=== PATIENT | male | born 1975 | race African-American/Black ===

== ENCOUNTER 2017-05-27 19:39 | Inpatient (IN) | payer OTHER ==
[~2017-05-27] VITALS: Ht 172.7 cm; Wt 177.5 kg
[~2017-05-27 19:39] MED LIST: ADVA250A INH; ALBU8I INH; COMBAER INH; DULE100A PO; IMOD2TAB PO
[2017-05-27 20:58] VITALS: BP 139/73; PULSE 119; RESP 22; TEMP 98.4; O2SAT 97
[2017-05-27] MEDS ORDERED: [UNRECOGNIZED DRUG - OTHER] INH (21:15)
[2017-05-27] MEDS ORDERED: VENTAER INH (21:15)
[2017-05-27] MEDS ORDERED: AZIT250T3 PO (21:15)
[2017-05-27] MEDS ORDERED: methylPREDNISolone SOD SUCC 125 MG/2 ML VIAL IV PUSH ONE (21:15)
[2017-05-27] MEDS ORDERED: PRED20 PO (21:15)
[2017-05-27] MEDS ORDERED: albuterol solution INH (21:15)
[2017-05-27] MEDS ORDERED: TYLE325T PO (21:15)
[2017-05-27 21:17] VITALS: O2SAT 97
[2017-05-27] MEDS: RESP: ALBUTEROL 2.5 MG/IPRATROPIUM 0.5 MG NEB (SCH) INH ×2 (21:26→21:27)
[2017-05-27 22:03] LABS: AUTOMATED NEUTROPHIL # 4.6 TH/MM3 (1.8-7.7); BASOPHIL % 0.2 % (0.0-2.0); EOSINOPHIL % 0.1 % (0.0-4.0); HEMATOCRIT 41.2 % (39.0-51.0); HEMOGLOBIN 13.9 GM/DL (13.0-17.0); LYMPH % 12.1 % (9.0-44.0); LYMPHOCYTE # 0.8 TH/MM3 (1.0-4.8); MEAN CELL VOLUME 80.8 FL (80.0-100.0); MEAN CORPUSCULAR HEMOGLOBIN 27.3 PG (27.0-34.0); MEAN CORPUSCULAR HGB CONC 33.8 % (32.0-36.0); MEAN PLATELET VOLUME 8.2 FL (7.0-11.0); MONO % 18.5 % (0.0-8.0); MONOCYTE # 1.2 TH/MM3 (0-0.9); NEUT % 69.1 % (16.0-70.0); PLATELET COUNT 210 TH/MM3 (150-450); RED CELL DISTRIBUTION WIDTH 14.2 % (11.6-17.2); WHITE BLOOD COUNT 6.7 TH/MM3 (4.0-11.0)
--- NOTE | 2017-05-27 22:05 | RADRPT ---
EXAM DATE/TIME: 05/27/2017 21:21 [facility] COMPARISON: No previous studies available for comparison. INDICATIONS : Shortness of breath. MEDICAL HISTORY : Asthma. SURGICAL HISTORY : None. ENCOUNTER: Initial ACUITY: 1 day PAIN SCORE: 0/10 LOCATION: Bilateral chest FINDINGS: PA and lateral views of the chest demonstrate the lungs to be symmetrically aerated without evidence of mass, infiltrate or effusion. The cardiomediastinal contours are unremarkable. Osseous structure s are intact. CONCLUSION: No acute disease. Maicol Fang MD on May 27, 2017 at 22:03 Board Certified Radiologist. This report was verified electronically.
[2017-05-27 22:09] LABS: INTERNATIONAL NORMALIZED RATIO 1.1 RATIO; PROTHROMBIN TIME - PATIENT 10.7 SEC (9.8-11.6)
[2017-05-27 22:16] LABS: ALBUMIN 3.9 GM/DL (3.4-5.0); AST (GOT) 23 U/L (15-37); BICARBONATE 23.2 MEQ/L (21.0-32.0); BLOOD UREA NITROGEN 13 MG/DL (7-18); CALCIUM 9.2 MG/DL (8.5-10.1); CHLORIDE 109 MEQ/L (98-107); CREATININE 1.21 MG/DL (0.60-1.30); GLOMERULAR FILTRATION RATE 81 ML/MIN (>89); GLUCOSE,RANDOM 103 MG/DL (74-106); SODIUM (NA) 142 MEQ/L (136-145)
[2017-05-27 22:17] LABS: ALT (GPT) 46 U/L (12-78)
[2017-05-27 22:29] LABS: ALKALINE PHOSPHATASE 71 U/L (45-117); TOTAL BILIRUBIN ADULT 0.3 MG/DL (0.2-1.0); TOTAL PROTEIN 8.3 GM/DL (6.4-8.2); TROPONIN I LESS THAN 0.02 NG/ML (0.02-0.05)
[2017-05-27] MEDS ORDERED: RESP: ALBUTEROL 2.5 MG/IPRATROPIUM 0.5 MG NEB (SCH) NEB ONE (23:45)
[2017-05-28] VITALS (7 sets, daily range): BP systolic 110–135; BP diastolic 58–94; PULSE 94–110; RESP 16–22; TEMP 97–98.6; O2SAT 94–98
[2017-05-28] MEDS: MAGNESIUM SULFATE 1 GM PREMIX 100 ML IV SCH ×2 (00:08→01:10)
--- NOTE | 2017-05-28 02:13 | PD ---
HPI Chief Complaint: Respiratory Symptoms Time Seen by Provider: 20:58 Travel History International Travel<30 days: No Contact w/Intl Traveler<30days: No Traveled to known affect area: No History of Present Illness HPI Patient is a 41 year old male, with history of asthma, who comes in complaining of difficulty breathing. He says that he has had cold symptoms for the past week, and has been triggering his asthma. He was seen by a primary doctor and prescribed azithromycin as well as prednisone. He has been taking these without relief of his symptoms. He says it became acutely worse tonight. He has been using albuterol without relief. He says he did have a fever earlier in the week. He denies any chest pain, but reports tightness in his chest. He denies any leg swelling or calf tenderness. Severity is moderate to severe. PFSH Past Medical History Asthma: Yes Autoimmune Disease: No Blood Disorders: No Cancer: No Cardiovascular Problems: No COPD: Yes Diminished Hearing: No Endocrine: No Genitourinary: Yes (KIDNEY STONES) Immune Disorder: No Kidney Stones: Yes Musculoskeletal: No Neurologic: No Psychiatric: No Reproductive: No Respiratory: Yes Sleep Apnea: Yes Tetanus Vaccination: > 5 Years Influenza Vaccination: No PNEUMOCCOCAL Vaccine (Year): 2 Past Surgical History Abdominal Surgery: Yes (HERNIA REPAIRED A CHILD) Genitourinary Surgery: No Other Surgery: Yes (UMBILICAL HERNIA REPAIR.) Social History Alcohol Use: No Tobacco Use: No Substance Use: No Allergies-Medications (Allergen,Severity, Reaction): Coded Allergies: aspirin (Unverified Adverse Reaction, Severe, GI UPSET, 10/04/16) Reported Meds & Prescriptions Reported Meds & Active Scripts Active Reported [albuterol solution] 0.083 % INH Q4-6H Tylenol (Acetaminophen) 325 Mg Tab 500 Mg PO PRN Prednisone 20 Mg Tab 20 Mg PO DAILY Azithromycin 250 Mg Tab 250 Mg PO DAILY Ventolin Hfa 18 GM Inh (Albuterol Sulfate) 90 Mcg/Act Aer 2 Puff INH Q4H PRN [brevo inh] Inh INH DAILY Review of Systems Except as stated in HPI: all other systems reviewed are Neg General / Constitutional: No: Fever, Chills HENT: Positive: Congestion, No: Headaches, Lightheadedness Cardiovascular: No: Chest Pain or Discomfort Respiratory: Positive: Cough, Shortness of Breath Gastrointestinal: No: Nausea, Vomiting Musculoskeletal: No: Myalgias, Edema Skin: No Rash, No Change in Pigmentation Neurologic: No: Weakness, Dizziness Physical Exam Narrative GENERAL: Awake and alert, in no acute distress. SKIN: Focused skin assessment warm/dry. HEAD: Atraumatic. Normocephalic. EYES: Pupils equal and round. No scleral icterus. ENT: Mucous membranes pink and moist. NECK: Trachea midline. No JVD. CARDIOVASCULAR: Regular rate and rhythm. No murmur appreciated. RESPIRATORY: No accessory muscle use. Decreased breath sounds, wheezing throughout. Breath sounds equal bilaterally. GASTROINTESTINAL: Abdomen soft, non-tender, nondistended. MUSCULOSKELETAL: No obvious deformities. No clubbing. No cyanosis. No edema. NEUROLOGICAL: Awake and alert. No obvious cranial nerve deficits. Motor grossly within normal limits. Normal speech. PSYCHIATRIC: Appropriate mood and affect; insight and judgment normal. Data Data Last Documented VS Vital Signs Date Time Temp Pulse Resp B/P (MAP) Pulse Ox O2 Delivery O2 Flow Rate FiO2 05/27/17 21:17 97 Nasal Cannula 4.00 05/27/17 20:58 98.4 119 22 139/73 (95) Orders Orders Complete Blood Count With Diff (05/27/17 21:03) Comprehensive Metabolic Panel (05/27/17 21:03) B-Type Natriuretic Peptide (05/27/17 21:03) Act Partial Throm Time (Ptt) (05/27/17 21:03) Prothrombin Time / Inr (Pt) (05/27/17 21:03) Troponin I (05/27/17 21:03) Iv Access Insert/Monitor (05/27/17 21:03) Electrocardiogram (05/27/17 21:03) Ecg Monitoring (05/27/17 21:03) Oximetry (05/27/17 21:03) Oxygen Administration (05/27/17 21:03) Chest, Pa & Lat (05/27/17 21:03) Sodium Chloride 0.9% Flush (Ns Flush) (05/27/17 21:15) Methylprednisolone So Succ Inj (Solumedr (05/27/17 21:15) Albuterol-Ipratropium Neb (Duoneb Neb) (05/27/17 21:15) Magnesium Sulfate 1 Gm Premix (Magnesium (05/27/17 23:45) Albuterol-Ipratropium Neb (Duoneb Neb) (05/27/17 23:45) Labs Laboratory Tests Test 05/27/17 21:21 05/27/17 21:34 White Blood Count 6.7 TH/MM3 Red Blood Count 5.10 MIL/MM3 Hemoglobin 13.9 GM/DL Hematocrit 41.2 % Mean Corpuscular Volume 80.8 FL Mean Corpuscular Hemoglobin 27.3 PG Mean Corpuscular Hemoglobin Concent 33.8 % Red Cell Distribution Width 14.2 % Platelet Count 210 TH/MM3 Mean Platelet Volume 8.2 FL Neutrophils (%) (Auto) 69.1 % Lymphocytes (%) (Auto) 12.1 % Monocytes (%) (Auto) 18.5 % Eosinophils (%) (Auto) 0.1 % Basophils (%) (Auto) 0.2 % Neutrophils # (Auto) 4.6 TH/MM3 Lymphocytes # (Auto) 0.8 TH/MM3 Monocytes # (Auto) 1.2 TH/MM3 Eosinophils # (Auto) 0.0 TH/MM3 Basophils # (Auto) 0.0 TH/MM3 CBC Comment DIFF FINAL Differential Comment Blood Urea Nitrogen 13 MG/DL Creatinine 1.21 MG/DL Random Glucose 103 MG/DL Total Protein 8.3 GM/DL Albumin 3.9 GM/DL Calcium Level 9.2 MG/DL Alkaline Phosphatase 71 U/L Aspartate Amino Transf (AST/SGOT) 23 U/L Alanine Aminotransferase (ALT/SGPT) 46 U/L Total Bilirubin 0.3 MG/DL Sodium Level 142 MEQ/L Potassium Level 4.0 MEQ/L Chloride Level 109 MEQ/L Carbon Dioxide Level 23.2 MEQ/L Anion Gap 10 MEQ/L Estimat Glomerular Filtration Rate 81 ML/MIN Troponin I LESS THAN 0.02 NG/ML Prothrombin Time 10.7 SEC Prothromb Time International Ratio 1.1 RATIO Activated Partial Thromboplast Time 21.7 SEC B-Type Natriuretic Peptide 20 PG/ML MDM Medical Decision Making Medical Screen Exam Complete: Yes Emergency Medical Condition: Yes Medical Record Reviewed: Yes Interpretation(s) ECG shows sinus tachycardia at 100. Differential Diagnosis asthma exacerbation vs pneumonia vs URI Narrative Course Patient is a 41 year old male who comes in complaining of SOB. Exam shows decreased breath sounds and wheezing throughout the lungs. Patient has saturation is 90% on room air. Given 4 duonebs and solumedrol. Given Magnesium. Patient continues to wheeze and have low oxygen saturation. Placed on 2L NC and admitted. Diagnosis Primary Impression: Asthma exacerbation Qualified Codes: J45.901 - Unspecified asthma with (acute) exacerbation Admitting Information Admitting Physician Requests: Berkley Grace MD May 28, 2017 02:13
[2017-05-28] MEDS: RESP: ALBUTEROL 2.5 MG/IPRATROPIUM 0.5 MG NEB (SCH) NEB ×6 (04:00→23:51)
[2017-05-28] MEDS ORDERED: IPRA0.02 NEB (08:06)
[2017-05-28] MEDS ORDERED: ALBU0.08 NEB (08:06)
[2017-05-28] MEDS ORDERED: IPRA0.06 EACH NARE (08:06)
--- NOTE | 2017-05-28 08:09 | HHI.HP ---
HPI Service [facility] Hospitalists Primary Care Physician Macrina Galindo MD Admission Diagnosis Asthma exacerbation Chief Complaint: SOB, wheezing, cough Travel History International Travel<30 Days: No Contact w/Intl Traveler <30 Da: No Traveled to Known Affected Are: No History of Present Illness Mr. Plasencia is a pleasant 41 y/o AAM with asthma, allergies, JUDAH and morbid obesity. He presented to the ED at [facility] on 05/27/17 with complaints of worsening cough and SOB. He states that about 1 week ago he began having "cold symptoms" with runny nose, post-nasal drip and cough. He was seen by a primary doctor on and was recommended use of sterile saline solution with his ipratropium nasal spray. He has been using Duonebs every 4 hours over the last week. Pts symptoms worsened and he went back to [facility] on 05/26/17 and was prescribed azithromycin as well as prednisone taper. He has been taking these without relief of his symptoms. Yesterday he had fevers of 101.2. Last night he felt that his symptoms acutely worsened with increased SOB and cough and this prompted him to come to the ED for further evaluation. Pt was given Solu-Medrol and Duonebs in the ED. He was initially requiring 4L of supplemental O2. He denies any chest pain, but reports tightness in his chest. He denies any leg swelling or calf tenderness. CXR in the ED indicated NAD. His WBC count was 6.7 at admission. Pt typically uses Breo ellipta, Ventolin inhaler 3-4 times daily and his Singulair for maintenance of his asthma. He also states that he has been getting allergy injections regularly. Pt has JUDAH but does not use CPAP. He reportedly has used CPAP in the past but it has been quite some time and is supposed to be following up with Dr. Aguilar for sleep study evaluation. Review of Systems Constitutional: COMPLAINS OF: Fever, DENIES: Dizziness, Change in appetite Eyes: DENIES: Vision loss Ears, nose, mouth, throat: COMPLAINS OF: Running Nose, DENIES: Tinnitus, Vertigo, Nasal discharge, Throat pain Respiratory: COMPLAINS OF: Cough, Wheezing, Shortness of breath Cardiovascular: DENIES: Chest pain, Palpitations, Lower Extremity Edema Gastrointestinal: DENIES: Nausea, Vomiting Genitourinary: DENIES: Hematuria, Dysuria Musculoskeletal: DENIES: Neck pain Integumentary: DENIES: Rash Neurologic: DENIES: Headache Psychiatric: DENIES: Confusion Past Family Social History Past Medical History Asthma JUDAH not on CPAP yet Allergies Morbid obesity Vitamin D and folate deficiency Past Surgical History Umbilical hernia repair Reported Medications Ipratropium Nasal 0.06% [place] 1 [place] EACH NARE BID Ipratropium Neb (Ipratropium [place]) 0.5 Mg/2.5 Ml Amp 0.5 Mg NEB Q4HR NEB PRN Albuterol Neb (Albuterol Sulfate) 2.5 Mg/3 Ml Neb 2.5 Mg NEB Q4HR NEB PRN Tylenol (Acetaminophen) 325 Mg Tab 500 Mg PO PRN Prednisone 20 Mg Tab 20 Mg PO DAILY Azithromycin 250 Mg Tab 250 Mg PO DAILY Ventolin Hfa 18 GM Inh (Albuterol Sulfate) 90 Mcg/Act Aer 2 Puff INH Q4H PRN Allergies: Coded Allergies: aspirin (Unverified Adverse Reaction, Severe, GI UPSET, 10/04/16) Family History Noncontributory Social History Denies any tobacco use Rare social alcohol use Works in [employer] for [employer] Pt is with 6 children, oldest is 23, youngest is 3 y/o Physical Exam Vital Signs Vital Signs Date Time Temp Pulse Resp B/P (MAP) Pulse Ox O2 Delivery O2 Flow Rate FiO2 05/28/17 07:47 97 Nasal Cannula 3.00 05/28/17 03:31 97.3 96 16 135/77 (96) 94 05/27/17 21:17 97 Nasal Cannula 4.00 05/27/17 21:17 97 Nasal Cannula 4.00 05/27/17 20:58 98.4 119 22 139/73 (95) 97 Physical Exam GENERAL: This is a well-nourished, well-developed patient, in no apparent distress. SKIN: No rashes, ecchymoses or lesions. Cool and dry. HEENT: Atraumatic. Normocephalic. No temporal or scalp tenderness. No scleral icterus. Airway patent. NECK: Trachea midline, supple, nontender. CARD: Regular. RESP: Diffuse expiratory wheeze bilaterally. ABD: +BS, soft, obese, non-tender, nondistended. EXT: Extremities without clubbing, cyanosis, or edema. NEURO: Awake and alert. Motor and sensory grossly within normal limits. Normal speech. Laboratory Laboratory Tests Test 05/27/17 21:21 05/27/17 21:34 White Blood Count 6.7 Red Blood Count 5.10 Hemoglobin 13.9 Hematocrit 41.2 Mean Corpuscular Volume 80.8 Mean Corpuscular Hemoglobin 27.3 Mean Corpuscular Hemoglobin Concent 33.8 Red Cell Distribution Width 14.2 Platelet Count 210 Mean Platelet Volume 8.2 Neutrophils (%) (Auto) 69.1 Lymphocytes (%) (Auto) 12.1 Monocytes (%) (Auto) 18.5 Eosinophils (%) (Auto) 0.1 Basophils (%) (Auto) 0.2 Neutrophils # (Auto) 4.6 Lymphocytes # (Auto) 0.8 Monocytes # (Auto) 1.2 Eosinophils # (Auto) 0.0 Basophils # (Auto) 0.0 CBC Comment DIFF FINAL Differential Comment Blood Urea Nitrogen 13 Creatinine 1.21 Random Glucose 103 Total Protein 8.3 Albumin 3.9 Calcium Level 9.2 Alkaline Phosphatase 71 Aspartate Amino Transf (AST/SGOT) 23 Alanine Aminotransferase (ALT/SGPT) 46 Total Bilirubin 0.3 Sodium Level 142 Potassium Level 4.0 Chloride Level 109 Carbon Dioxide Level 23.2 Anion Gap 10 Estimat Glomerular Filtration Rate 81 Troponin I LESS THAN 0.02 Prothrombin Time 10.7 Prothromb Time International Ratio 1.1 Activated Partial Thromboplast Time 21.7 B-Type Natriuretic Peptide 20 Result Diagram: 05/27/17212005/27/172120 Imaging Last Impressions Chest X-Ray 05/27/172102 Signed Impressions: Service Date/Time: Saturday, May 27, 2017 21:21 - CONCLUSION: No acute disease. MD Joaquina Jiménezi VTE Risk Assessment Caprini VTE Risk Assessment: No/Low Risk (score <= 1) Caprini Risk Assessment Model Point Value = 1 Point Value = 2 Point Value = 3 Point Value = 5 Age 41-60 Minor surgery BMI > 25 kg/m2 Swollen legs Varicose veins or History of unexplained or recurrent spontaneous Oral contraceptives or hormone replacement Sepsis (< 1 month) Serious lung disease, including pneumonia (< 1 month) Abnormal pulmonary function Acute myocardial infarction Congestive heart failure (< 1 month) History of inflammatory bowel disease Medical patient at bed rest Age 61-74 Arthroscopic surgery Major open surgery (> 45 min) Laparoscopic surgery (> 45 min) Malignancy Confined to bed (> 72 hours) Immobilizing plaster cast Central venous access Age >= 75 History of VTE Family history of VTE Factor V Leiden Prothrombin [id number] Lupus anticoagulant Anticardiolipin antibodies Elevated serum homocysteine Heparin-induced thrombocytopenia Other congenital or acquired thrombophilia Stroke (< 1 month) Elective arthroplasty Hip, pelvis, or leg fracture Acute spinal cord injury (< 1 month) Prophylaxis Regimen Total Risk Factor Score Risk Level Prophylaxis Regimen 0-1 Low Early ambulation 2 Moderate Order ONE of the following: *Sequential Compression Device (SCD) *Heparin 5000 units SQ BID 3-4 Higher Order ONE of the following medications: *Heparin 5000 units SQ TID *Enoxaparin/Lovenox 40 mg SQ daily (WT < 150 kg, CrCl > 30 mL/min) *Enoxaparin/Lovenox 30 mg SQ daily (WT < 150 kg, CrCl > 10-29 mL/min) *Enoxaparin/Lovenox 30 mg SQ BID (WT < 150 kg, CrCl > 30 mL/min) AND/OR *Sequential Compression Device (SCD) 5 or more Highest Order ONE of the following medications: *Heparin 5000 units SQ TID (Preferred with Epidurals) *Enoxaparin/Lovenox 40 mg SQ daily (WT < 150 kg, CrCl > 30 mL/min) *Enoxaparin/Lovenox 30 mg SQ daily (WT < 150 kg, CrCl > 10-29 mL/min) *Enoxaparin/Lovenox 30 mg SQ BID (WT < 150 kg, CrCl > 30 mL/min) AND *Sequential Compression Device (SCD) Assessment and Plan Problem List: (1) Asthma exacerbation ICD Codes: J45.901 - Unspecified asthma with (acute) exacerbation Status: Acute Plan: Asthma exacerbation with acute bronchitis - Pt is a 41 y/o AAM with asthma, allergies, JUDAH and morbid obesity. - He presented to the ED at [facility] on 05/27/17 with complaints of worsening cough and SOB that began about 1 week ago with "cold symptoms" with runny nose, post- nasal drip and cough. He has been using Duonebs every 4 hours over the last week. Pts symptoms worsened and he to [facility] on 05/26/17 and was prescribed azithromycin as well as prednisone taper. He has been taking these without relief of his symptoms. Yesterday he had fevers of 101.2. Last night he felt that his symptoms acutely worsened with increased SOB and cough and this prompted him to come to the ED for further evaluation. - Pt was given Solu-Medrol and Duonebs in the ED. He was initially requiring 4L of supplemental O2. - CXR in the ED indicated NAD. His WBC count was 6.7 at admission. - Pt typically uses Breo ellipta, Ventolin inhaler 3-4 times daily and his Singulair for maintenance of his asthma. He also states that he has been getting allergy injections regularly. - Cont. Solu-medrol 60mg Q6H - Cont. Duonebs Q4H scheduled and Q2H PRN - Given Budesonide nebs BID - Azithromycin IV - Claritin - Wean down on supplemental O2 - Supportive care - DVT prophylaxis with SCDs JUDAH - Pt has JUADH but does not use CPAP. He reportedly has used CPAP in the past but it has been quite some time and is supposed to be following up with Dr. Aguilar for sleep study evaluation. (2) Bronchitis ICD Codes: J40 - Bronchitis, not specified as acute or chronic Status: Acute (3) JUDAH (obstructive sleep apnea) ICD Codes: G47.33 - Obstructive sleep apnea (adult) (pediatric) Status: Chronic Assessment and Plan Patient examined. Assessment and plan formulated with Ariella Chester PA-C. I agree with the above. Pt's lung much improved on physical exam. There is good air movement without wheezing. Discharge medications reviewed with pt. Pt to f/u with PCP, Dr. Galindo in 1 week. Problem Qualifiers (1) Asthma exacerbation: Qualified Codes: J45.901 - Unspecified asthma with (acute) exacerbation Kezia Diaz May 28, 2017 08:09 Hernan Caruso MD May 28, 2017 12:52 Leon Colon DO Jun 03, 2017 12:42
[2017-05-28] MEDS ORDERED: FLUT1INH7 INH (08:24)
[2017-05-28] MEDS ORDERED: AZEL1SPR2 EACH NARE (08:24)
[2017-05-28] MEDS ORDERED: RESP: BUDESONIDE 0.5 MG/2 ML NEB NEB ONE (08:30)
[2017-05-28] MEDS ORDERED: ALBUTEROL SULFATE 90 MCG/ACT HFA 8 GM INHALER INH PRN (08:30)
[2017-05-28] MEDS ORDERED: ONDANSETRON HCL 4 MG/2 ML VIAL IV PRN (08:30)
[2017-05-28] MEDS ORDERED: AZELASTINE 0.1% NASAL SCH (09:00)
[2017-05-28] MEDS ORDERED: methylPREDNISolone SOD SUCC 125 MG/2 ML VIAL IV PUSH SCH (09:00)
[2017-05-28] MEDS: FLUTICASONE 200 MCG/VILANTEROL 25 MCG INHALER INH SCH (09:14)
[2017-05-28] MEDS: guaiFENesin E.R. 600 MG TAB PO SCH ×2 (09:16→20:32)
[2017-05-28] MEDS: SODIUM CHLORIDE 0.9% FLUSH 10 ML FLUSH IVF PRN (09:16)
[2017-05-28] MEDS: methylPREDNISolone SOD SUCC 125 MG/2 ML VIAL IV PUSH SCH ×3 (09:16→20:31)
[2017-05-28] MEDS: LORATADINE 10 MG TAB PO SCH (09:16)
[2017-05-28] MEDS: AZITHROMYCIN INJ 500 MG in SODIUM CHLOR 0.9% 250 ML INJ 250 ML IV SCH (09:16)
[2017-05-28] MEDS: ACETAMINOPHEN 325 MG TAB PO PRN ×2 (14:52→20:18)
--- NOTE | 2017-05-28 19:07 | EKG ---
Date Performed: 05/27/2017 Time Performed: 21:05:01 PTAGE: 41 years EKG: SINUS TACHYCARDIA Since the previous tracing, no significant change noted ABNORMAL RHYTHM E CG PREVIOUS TRACING : 01/11/13 @ 1050 DOCTOR: Hernan Saini Interpretating Date/Time 05/28/2017 19:07:10
[2017-05-28] MEDS: RESP: BUDESONIDE 0.5 MG/2 ML NEB NEB SCH (21:01)
[2017-05-29] VITALS (7 sets, daily range): BP systolic 111–132; BP diastolic 57–74; PULSE 89–118; RESP 16–20; TEMP 96.8–98.8; O2SAT 92–97
[2017-05-29] MEDS: methylPREDNISolone SOD SUCC 125 MG/2 ML VIAL IV PUSH SCH ×4 (03:43→21:59)
[2017-05-29] MEDS: ACETAMINOPHEN 325 MG TAB PO PRN ×3 (03:48→22:04)
[2017-05-29] MEDS: RESP: ALBUTEROL 2.5 MG/IPRATROPIUM 0.5 MG NEB (SCH) NEB ×6 (04:00→23:03)
[2017-05-29] MEDS: RESP: BUDESONIDE 0.5 MG/2 ML NEB NEB SCH ×2 (08:28→19:54)
--- NOTE | 2017-05-29 09:16 | HHI.PR ---
Subjective Remarks Pt reports that he does not feel significantly better than yesterday Cough is more productive today and reportedly bringing up yellow phlegm Afebrile Still requiring 2-3L of supplemental O2 Objective Vitals Vital Signs Date Time Temp Pulse Resp B/P (MAP) Pulse Ox O2 Delivery O2 Flow Rate FiO2 05/29/17 08:33 97.2 89 19 125/69 (87) 93 05/29/17 03:17 97.6 90 18 124/70 (88) 94 05/29/17 00:56 98.0 93 18 127/67 (87) 92 05/28/17 21:00 98 Nasal Cannula 3.00 05/28/17 19:59 98.0 110 18 129/94 (106) 95 05/28/17 16:00 97.0 94 20 125/69 (87) 96 05/28/17 12:00 98.6 110 20 110/58 (75) 96 Result Diagram: 05/27/17212005/27/172120 Other Results Laboratory Tests Test 05/27/17 21:21 05/27/17 21:34 White Blood Count 6.7 TH/MM3 Red Blood Count 5.10 MIL/MM3 Hemoglobin 13.9 GM/DL Hematocrit 41.2 % Mean Corpuscular Volume 80.8 FL Mean Corpuscular Hemoglobin 27.3 PG Mean Corpuscular Hemoglobin Concent 33.8 % Red Cell Distribution Width 14.2 % Platelet Count 210 TH/MM3 Mean Platelet Volume 8.2 FL Neutrophils (%) (Auto) 69.1 % Lymphocytes (%) (Auto) 12.1 % Monocytes (%) (Auto) 18.5 % Eosinophils (%) (Auto) 0.1 % Basophils (%) (Auto) 0.2 % Neutrophils # (Auto) 4.6 TH/MM3 Lymphocytes # (Auto) 0.8 TH/MM3 Monocytes # (Auto) 1.2 TH/MM3 Eosinophils # (Auto) 0.0 TH/MM3 Basophils # (Auto) 0.0 TH/MM3 CBC Comment DIFF FINAL Differential Comment Blood Urea Nitrogen 13 MG/DL Creatinine 1.21 MG/DL Random Glucose 103 MG/DL Total Protein 8.3 GM/DL Albumin 3.9 GM/DL Calcium Level 9.2 MG/DL Alkaline Phosphatase 71 U/L Aspartate Amino Transf (AST/SGOT) 23 U/L Alanine Aminotransferase (ALT/SGPT) 46 U/L Total Bilirubin 0.3 MG/DL Sodium Level 142 MEQ/L Potassium Level 4.0 MEQ/L Chloride Level 109 MEQ/L Carbon Dioxide Level 23.2 MEQ/L Anion Gap 10 MEQ/L Estimat Glomerular Filtration Rate 81 ML/MIN Troponin I LESS THAN 0.02 NG/ML Prothrombin Time 10.7 SEC Prothromb Time International Ratio 1.1 RATIO Activated Partial Thromboplast Time 21.7 SEC B-Type Natriuretic Peptide 20 PG/ML Imaging Last Impressions Chest X-Ray 05/27/172102 Signed Impressions: Service Date/Time: Saturday, May 27, 2017 21:21 - CONCLUSION: No acute disease. Maicol Fang MD Objective Remarks General: NAD, AAOx3 Chest: Diffuse wheezing bilaterally Cardiac: Regular Abd: +BS, soft, obese, ND/NT Ext: No edema A/P Problem List: (1) Asthma exacerbation ICD Codes: J45.901 - Unspecified asthma with (acute) exacerbation Status: Acute Plan: Asthma exacerbation with acute bronchitis - Pt is a 41 y/o AAM with asthma, allergies, JUDAH and morbid obesity. - He presented to the ED at [facility] on 05/27/17 with complaints of worsening cough and SOB that began about 1 week ago with "cold symptoms" with runny nose, post- nasal drip and cough. He has been using Duonebs every 4 hours over the last week. Pts symptoms worsened and he to [facility] on 05/26/17 and was prescribed azithromycin as well as prednisone taper. He has been taking these without relief of his symptoms. Yesterday he had fevers of 101.2. Last night he felt that his symptoms acutely worsened with increased SOB and cough and this prompted him to come to the ED for further evaluation. - Pt was given Solu-Medrol and Duonebs in the ED. He was initially requiring 4L of supplemental O2. - CXR in the ED indicated NAD. His WBC count was 6.7 at admission. - Pt typically uses Breo ellipta, Ventolin inhaler 3-4 times daily and his Singulair for maintenance of his asthma. He also states that he has been getting allergy injections regularly. - Cont. Solu-medrol 60mg Q6H - Cont. Duonebs Q4H scheduled and Q2H PRN - Budesonide nebs BID - Azithromycin IV - Claritin - Sputum culture ordered but not sent yet - Wean down on supplemental O2 - Supportive care - DVT prophylaxis with SCDs JUDAH - Pt has JUDAH but does not use CPAP. He reportedly has used CPAP in the past but it has been quite some time and is supposed to be following up with Dr. Aguilar for sleep study evaluation. (2) Bronchitis ICD Codes: J40 - Bronchitis, not specified as acute or chronic Status: Acute (3) JUDAH (obstructive sleep apnea) ICD Codes: G47.33 - Obstructive sleep apnea (adult) (pediatric) Status: Chronic Assessment and Plan Patient examined. Assessment and plan formulated with Ariella Chester PA-C. I agree with the above. Problem Qualifiers (1) Asthma exacerbation: Qualified Codes: J45.901 - Unspecified asthma with (acute) exacerbation Kezia Diaz May 29, 2017 09:16 Leon Colon DO May 31, 2017 16:17
[2017-05-29] MEDS: LORATADINE 10 MG TAB PO SCH (09:29)
[2017-05-29] MEDS: guaiFENesin E.R. 600 MG TAB PO SCH ×2 (09:29→21:58)
[2017-05-29] MEDS: FLUTICASONE 200 MCG/VILANTEROL 25 MCG INHALER INH SCH (09:30)
[2017-05-29] MEDS: AZITHROMYCIN INJ 500 MG in SODIUM CHLOR 0.9% 250 ML INJ 250 ML IV SCH (09:30)
[2017-05-29] MEDS: SODIUM CHLORIDE 0.9% FLUSH 10 ML FLUSH IVF PRN (09:31)
--- NOTE | 2017-05-29 12:17 | RADRPT ---
EXAM DATE/TIME: 05/29/2017 12:09 [facility] COMPARISON: CHEST PA & LAT, May 27, 2017, 21:21. INDICATIONS : Short of breath, chest pain. MEDICAL HISTORY : Asthma SURGICAL HISTORY : None. ENCOUNTER: Subsequent ACUITY: 1 week PAIN SCORE: 5/10 LOCATION: Bilateral chest FINDINGS: PA and lateral views of the chest demonstrate the lungs to be symmetrically aerated without evidence of mass, infiltrate or effusion. The cardiomediastinal contours are unremarkable. Osseous structure s are intact. CONCLUSION: No acute disease. Frankie Enamorado MD FACR on May 29, 2017 at 12:15 Board Certified Radiologist. This report was verified electronically.
[2017-05-30] VITALS (8 sets, daily range): BP systolic 105–142; BP diastolic 53–84; PULSE 87–99; RESP 18–20; TEMP 97.6–98.8; O2SAT 93–97
[2017-05-30] MEDS: methylPREDNISolone SOD SUCC 125 MG/2 ML VIAL IV PUSH SCH ×4 (03:12→21:33)
[2017-05-30] MEDS: RESP: ALBUTEROL 2.5 MG/IPRATROPIUM 0.5 MG NEB (SCH) NEB ×5 (03:28→20:43)
[2017-05-30] MEDS: RESP: BUDESONIDE 0.5 MG/2 ML NEB NEB SCH ×2 (07:59→20:43)
[2017-05-30] MEDS: SODIUM CHLORIDE 0.9% FLUSH 10 ML FLUSH IVF PRN (09:12)
[2017-05-30] MEDS: LORATADINE 10 MG TAB PO SCH (09:13)
[2017-05-30] MEDS: guaiFENesin E.R. 600 MG TAB PO SCH ×2 (09:13→21:33)
[2017-05-30] MEDS: AZITHROMYCIN INJ 500 MG in SODIUM CHLOR 0.9% 250 ML INJ 250 ML IV SCH (09:13)
[2017-05-30] MEDS: FLUTICASONE 200 MCG/VILANTEROL 25 MCG INHALER INH SCH (09:13)
--- NOTE | 2017-05-30 09:14 | HHI.PR ---
Subjective Remarks Pt is off supplemental O2 with O2 sats in the mid 90's at rest He still feels fairly SOB with ambulation Objective Vitals Vital Signs Date Time Temp Pulse Resp B/P (MAP) Pulse Ox O2 Delivery O2 Flow Rate FiO2 05/30/17 08:02 97 21 05/30/17 08:00 97.6 87 20 127/73 (91) 96 05/30/17 03:38 97.8 98 18 131/71 (91) 93 05/30/17 00:00 98.3 99 18 105/53 (70) 94 05/29/17 20:10 98.8 118 20 111/57 (75) 94 05/29/17 19:35 97 05/29/17 15:22 97.8 94 20 127/74 (91) 94 05/29/17 11:10 96.8 104 16 132/74 (93) 95 Result Diagram: 05/27/17212005/27/172120 Imaging Last Impressions Chest X-Ray 05/27/172102 Signed Impressions: Service Date/Time: Saturday, May 27, 2017 21:21 - CONCLUSION: No acute disease. Maicol Fang MD Objective Remarks General: NAD, AAOx3 Chest: Diffuse wheezing bilaterally Cardiac: Regular Abd: +BS, soft, obese, ND/NT Ext: No edema A/P Problem List: (1) Asthma exacerbation ICD Codes: J45.901 - Unspecified asthma with (acute) exacerbation Status: Acute Plan: Asthma exacerbation with acute bronchitis - Pt is a 41 y/o AAM with asthma, allergies, JUDAH and morbid obesity. - He presented to the ED at [facility] on 05/27/17 with complaints of worsening cough and SOB that began about 1 week ago with "cold symptoms" with runny nose, post- nasal drip and cough. He has been using Duonebs every 4 hours over the last week. Pts symptoms worsened and he to [facility] on 05/26/17 and was prescribed azithromycin as well as prednisone taper. He has been taking these without relief of his symptoms. Yesterday he had fevers of 101.2. Last night he felt that his symptoms acutely worsened with increased SOB and cough and this prompted him to come to the ED for further evaluation. - Pt was given Solu-Medrol and Duonebs in the ED. He was initially requiring 4L of supplemental O2. - CXR in the ED indicated NAD. His WBC count was 6.7 at admission. - Pt typically uses Breo ellipta, Ventolin inhaler 3-4 times daily and his Singulair for maintenance of his asthma. He also states that he has been getting allergy injections regularly. - Cont. Solu-medrol 60mg Q6H - Cont. Duonebs Q4H scheduled and Q2H PRN - Budesonide nebs BID - Azithromycin IV - Claritin - Sputum culture pending - Pt was weaned off supplemental O2 on 05/29 - Supportive care - DVT prophylaxis with SCDs JUDAH - Pt has JUDAH but does not use CPAP. He reportedly has used CPAP in the past but it has been quite some time and is supposed to be following up with Dr. Aguilar for sleep study evaluation. (2) Bronchitis ICD Codes: J40 - Bronchitis, not specified as acute or chronic Status: Acute (3) JUDAH (obstructive sleep apnea) ICD Codes: G47.33 - Obstructive sleep apnea (adult) (pediatric) Status: Chronic Assessment and Plan Patient examined. Assessment and plan formulated with Ariella Chester PA-C. I agree with the above. Problem Qualifiers (1) Asthma exacerbation: Qualified Codes: J45.901 - Unspecified asthma with (acute) exacerbation Kezia Diaz May 30, 2017 09:14 Leon Colon DO May 31, 2017 16:18
[2017-05-30] MEDS: INSULIN ASPART SUPPLEMENTAL SCALE SQ SCH ×2 (17:04→21:50)
[2017-05-30] MEDS: ACETAMINOPHEN 325 MG TAB PO PRN (19:24)
[2017-05-31] VITALS (8 sets, daily range): BP systolic 127–152; BP diastolic 72–87; PULSE 84–106; RESP 18–20; TEMP 97.4–98; O2SAT 93–96
[2017-05-31] MEDS: methylPREDNISolone SOD SUCC 125 MG/2 ML VIAL IV PUSH SCH ×4 (03:57→22:04)
[2017-05-31] MEDS: RESP: ALBUTEROL 2.5 MG/IPRATROPIUM 0.5 MG NEB (SCH) NEB ×7 (04:06→23:59)
[2017-05-31] MEDS: guaiFENesin E.R. 600 MG TAB PO SCH ×2 (07:45→22:04)
[2017-05-31] MEDS: LORATADINE 10 MG TAB PO SCH (07:45)
[2017-05-31] MEDS: AZITHROMYCIN INJ 500 MG in SODIUM CHLOR 0.9% 250 ML INJ 250 ML IV SCH (07:46)
[2017-05-31] MEDS: INSULIN ASPART SUPPLEMENTAL SCALE SQ SCH ×4 (07:46→23:27)
[2017-05-31] MEDS: FLUTICASONE 200 MCG/VILANTEROL 25 MCG INHALER INH SCH (07:47)
[2017-05-31] MEDS: RESP: BUDESONIDE 0.5 MG/2 ML NEB NEB SCH ×2 (08:36→19:54)
--- NOTE | 2017-05-31 16:14 | HHI.PR ---
Subjective Remarks Less SOB today. Wheezing is improving. Objective Vitals Vital Signs Date Time Temp Pulse Resp B/P (MAP) Pulse Ox O2 Delivery O2 Flow Rate FiO2 05/31/17 16:10 97.5 85 20 139/80 (99) 95 05/31/17 11:43 97.6 106 20 127/72 (90) 95 05/31/17 08:20 96 21 05/31/17 07:42 98.0 84 20 139/87 (104) 93 05/31/17 04:08 94 05/31/17 01:16 94 05/31/17 00:33 97.4 86 18 152/83 (106) 96 05/30/17 20:47 95 05/30/17 20:34 98.5 91 18 140/84 (102) 95 05/30/17 16:41 98.8 87 18 142/79 (100) 94 05/31/17 05/31/17 06/01/17 15:00 23:00 07:00 Intake Total 250 ml Balance 250 ml Intake IV Total 250 ml Result Diagram: 05/27/17212005/27/172120 Imaging Last Impressions Chest X-Ray 05/27/172102 Signed Impressions: Service Date/Time: Saturday, May 27, 2017 21:21 - CONCLUSION: No acute disease. Maicol Fang MD Objective Remarks General: NAD, AAOx3 Chest: Diffuse wheezing bilaterally Cardiac: Regular Abd: +BS, soft, obese, ND/NT Ext: No edema A/P Problem List: (1) Asthma exacerbation ICD Codes: J45.901 - Unspecified asthma with (acute) exacerbation Status: Acute Plan: Asthma exacerbation with acute bronchitis - Pt is a 41 y/o AAM with asthma, allergies, JUDAH and morbid obesity. - He presented to the ED at [facility] on 05/27/17 with complaints of worsening cough and SOB that began about 1 week ago with "cold symptoms" with runny nose, post- nasal drip and cough. He has been using Duonebs every 4 hours over the last week. Pts symptoms worsened and he to [facility] on 05/26/17 and was prescribed azithromycin as well as prednisone taper. He has been taking these without relief of his symptoms. Yesterday he had fevers of 101.2. Last night he felt that his symptoms acutely worsened with increased SOB and cough and this prompted him to come to the ED for further evaluation. - Pt was given Solu-Medrol and Duonebs in the ED. He was initially requiring 4L of supplemental O2. - CXR in the ED indicated NAD. His WBC count was 6.7 at admission. - Pt typically uses Breo ellipta, Ventolin inhaler 3-4 times daily and his Singulair for maintenance of his asthma. He also states that he has been getting allergy injections regularly. - Cont. Solu-medrol 60mg Q6H - Cont. Duonebs Q4H scheduled and Q2H PRN - Budesonide nebs BID - Azithromycin IV - Claritin - Sputum culture pending - Pt was weaned off supplemental O2 on 05/29 - Supportive care - DVT prophylaxis with SCDs JUDAH - Pt has JUDAH but does not use CPAP. He reportedly has used CPAP in the past but it has been quite some time and is supposed to be following up with Dr. Aguilar for sleep study evaluation. (2) Bronchitis ICD Codes: J40 - Bronchitis, not specified as acute or chronic Status: Acute (3) JUDAH (obstructive sleep apnea) ICD Codes: G47.33 - Obstructive sleep apnea (adult) (pediatric) Status: Chronic Problem Qualifiers (1) Asthma exacerbation: Qualified Codes: J45.901 - Unspecified asthma with (acute) exacerbation Leon Colon DO May 31, 2017 16:14
[2017-05-31] MEDS ORDERED: RESP: ALBUTEROL 2.5 MG/IPRATROPIUM 0.5 MG NEB (PRN) NEB (17:15)
[2017-05-31] MEDS: INSULIN DETEMIR 100 UNITS/ML VIAL SQ SCH (23:27)
[2017-06-01 00:15] VITALS: BP 126/72; PULSE 110; RESP 18; TEMP 98.1; O2SAT 96
[2017-06-01] MEDS: RESP: ALBUTEROL 2.5 MG/IPRATROPIUM 0.5 MG NEB (SCH) NEB ×3 (03:14→21:55)
[2017-06-01] MEDS: methylPREDNISolone SOD SUCC 125 MG/2 ML VIAL IV PUSH SCH ×2 (03:31→08:17)
[2017-06-01 04:45] VITALS: BP 130/75; PULSE 102; RESP 21; TEMP 97.9; O2SAT 95
[2017-06-01 08:00] VITALS: BP_SYST 170; BP_SYST 172; BP_DIAS 89; BP_DIAS 92; PULSE 89; RESP 18; TEMP 97.9; O2SAT 94
[2017-06-01] MEDS: guaiFENesin E.R. 600 MG TAB PO SCH ×2 (08:16→22:47)
[2017-06-01] MEDS: LORATADINE 10 MG TAB PO SCH (08:16)
[2017-06-01] MEDS: INSULIN ASPART SUPPLEMENTAL SCALE SQ SCH ×4 (08:17→22:48)
[2017-06-01] MEDS: INSULIN DETEMIR 100 UNITS/ML VIAL SQ SCH ×2 (08:17→22:47)
[2017-06-01] MEDS: AZITHROMYCIN INJ 500 MG in SODIUM CHLOR 0.9% 250 ML INJ 250 ML IV SCH (08:18)
[2017-06-01] MEDS: FLUTICASONE 200 MCG/VILANTEROL 25 MCG INHALER INH SCH (08:18)
[2017-06-01] MEDS ORDERED: RESP: ALBUTEROL 2.5 MG/IPRATROPIUM 0.5 MG NEB (SCH) NEB (08:45)
[2017-06-01] MEDS: RESP: BUDESONIDE 0.5 MG/2 ML NEB NEB SCH ×2 (08:50→21:55)
[2017-06-01 13:08] VITALS: BP 155/82; PULSE 84; RESP 18; TEMP 98.4; O2SAT 94
[2017-06-01] MEDS ORDERED: PILL SPLITTER OTHER PRN (14:15)
--- NOTE | 2017-06-01 14:26 | HHI.PR ---
Subjective Remarks No new complaints. Objective Vitals Vital Signs Date Time Temp Pulse Resp B/P (MAP) Pulse Ox O2 Delivery O2 Flow Rate FiO2 06/01/17 13:08 98.4 84 18 155/82 (106) 94 06/01/17 08:00 97.9 89 18 172/89 (116) 94 170/92 (118) 06/01/17 04:45 97.9 102 21 130/75 (93) 95 06/01/17 00:15 98.1 110 18 126/72 (90) 96 05/31/17 19:28 97.7 104 18 133/73 (93) 95 05/31/17 16:10 97.5 85 20 139/80 (99) 95 Imaging Last Impressions Chest X-Ray 05/27/172102 Signed Impressions: Service Date/Time: Monday, May 27, 2017 21:21 - CONCLUSION: No acute disease. Maicol Fang MD Objective Remarks General: NAD, AAOx3 Chest: occasional, scattered b/l expiratory wheeze Cardiac: Regular Abd: +BS, soft, obese, ND/NT Ext: No edema A/P Problem List: (1) Asthma exacerbation ICD Codes: J45.901 - Unspecified asthma with (acute) exacerbation Status: Acute Plan: Asthma exacerbation with acute bronchitis - Pt is a 41 y/o AAM with asthma, allergies, JUDAH and morbid obesity. - He presented to the ED at [facility] on 05/27/17 with complaints of worsening cough and SOB that began about 1 week ago with "cold symptoms" with runny nose, post- nasal drip and cough. He has been using Duonebs every 4 hours over the last week. Pts symptoms worsened and he to [facility] on 05/26/17 and was prescribed azithromycin as well as prednisone taper. He has been taking these without relief of his symptoms. Yesterday he had fevers of 101.2. Last night he felt that his symptoms acutely worsened with increased SOB and cough and this prompted him to come to the ED for further evaluation. - Pt was given Solu-Medrol and Duonebs in the ED. He was initially requiring 4L of supplemental O2. - CXR in the ED indicated NAD. His WBC count was 6.7 at admission. - Pt typically uses Breo ellipta, Ventolin inhaler 3-4 times daily and his Singulair for maintenance of his asthma. He also states that he has been getting allergy injections regularly. - change solumedrol to PO prednisone - decreased scheduled duonebs to q6h and Q2H PRN - Budesonide nebs BID - change Azithromycin to PO - Claritin - Sputum culture --> normal respiratory lito - Pt was weaned off supplemental O2 on 05/29 - Supportive care - DVT prophylaxis with SCDs - if pt remains stable, will discharge to home 06/02/17 JUDAH - Pt has JUDAH but does not use CPAP. He reportedly has used CPAP in the past but it has been quite some time and is supposed to be following up with Dr. Aguilar for sleep study evaluation. (2) JUDAH (obstructive sleep apnea) ICD Codes: G47.33 - Obstructive sleep apnea (adult) (pediatric) Status: Chronic Plan: - see above (3) Steroid-induced hyperglycemia ICD Codes: R73.9 - Hyperglycemia, unspecified; T38.0X5A - Adverse effect of glucocorticoids and synthetic analogues, initial encounter Status: Acute Plan: - blood sugar was normal on admission - elevation likely d/t steroids, but possibly underlying DM2 - obtain HgA1C - continue levemir 7 units BID - SSI Problem Qualifiers (1) Asthma exacerbation: Qualified Codes: J45.901 - Unspecified asthma with (acute) exacerbation Leon Colon DO Jun 01, 2017 14:26
[2017-06-01 16:00] VITALS: BP 154/86; PULSE 101; RESP 18; TEMP 97.8; O2SAT 94
[2017-06-01 20:00] VITALS: BP 169/67; PULSE 86; RESP 16; TEMP 98.1; O2SAT 97
[2017-06-01] MEDS: predniSONE 20 MG TAB PO SCH (22:47)
[2017-06-02] VITALS (7 sets, daily range): BP systolic 134–146; BP diastolic 60–87; PULSE 79–100; RESP 16–18; TEMP 97.5–99.6; O2SAT 92–98
[2017-06-02] MEDS: RESP: ALBUTEROL 2.5 MG/IPRATROPIUM 0.5 MG NEB (SCH) NEB ×4 (04:31→20:13)
[2017-06-02] MEDS: AZITHROMYCIN 250 MG TAB PO SCH (08:40)
[2017-06-02] MEDS: guaiFENesin E.R. 600 MG TAB PO SCH ×2 (08:40→19:57)
[2017-06-02] MEDS: predniSONE 20 MG TAB PO SCH ×2 (08:41→19:57)
[2017-06-02] MEDS: INSULIN ASPART SUPPLEMENTAL SCALE SQ SCH ×4 (08:41→20:03)
[2017-06-02] MEDS: LORATADINE 10 MG TAB PO SCH (08:41)
[2017-06-02] MEDS: INSULIN DETEMIR 100 UNITS/ML VIAL SQ SCH ×2 (08:41→20:03)
[2017-06-02] MEDS: FLUTICASONE 200 MCG/VILANTEROL 25 MCG INHALER INH SCH (08:44)
[2017-06-02] MEDS ORDERED: PRED10 PO (08:51)
[2017-06-02] MEDS ORDERED: CLAR10TA7 PO (08:55)
--- NOTE | 2017-06-02 08:56 | HHI.DS ---
Discharge Summary Admission Date May 29, 2017 at 11:43 Discharge Date: Jun 03, 2017 Admitting Diagnosis Asthma exacerbation (1) Asthma exacerbation ICD Codes: J45.901 - Unspecified asthma with (acute) exacerbation Status: Acute (2) JUDAH (obstructive sleep apnea) ICD Codes: G47.33 - Obstructive sleep apnea (adult) (pediatric) Status: Chronic (3) Steroid-induced hyperglycemia ICD Codes: R73.9 - Hyperglycemia, unspecified; T38.0X5A - Adverse effect of glucocorticoids and synthetic analogues, initial encounter Status: Acute Consultants none Procedures none Brief History Mr. Plasencia is a pleasant 41 y/o AAM with asthma, allergies, JUDAH and morbid obesity. He presented to the ED at [facility] on 05/27/17 with complaints of worsening cough and SOB. He states that about 1 week ago he began having "cold symptoms" with runny nose, post-nasal drip and cough. He was seen by a primary doctor on and was recommended use of sterile saline solution with his ipratropium nasal spray. He has been using Duonebs every 4 hours over the last week. Pts symptoms worsened and he went back to [facility] on 05/26/17 and was prescribed azithromycin as well as prednisone taper. He has been taking these without relief of his symptoms. Yesterday he had fevers of 101.2. Last night he felt that his symptoms acutely worsened with increased SOB and cough and this prompted him to come to the ED for further evaluation. Pt was given Solu-Medrol and Duonebs in the ED. He was initially requiring 4L of supplemental O2. He denies any chest pain, but reports tightness in his chest. He denies any leg swelling or calf tenderness. CXR in the ED indicated NAD. His WBC count was 6.7 at admission. Pt typically uses Breo ellipta, Ventolin inhaler 3-4 times daily and his Singulair for maintenance of his asthma. He also states that he has been getting allergy injections regularly. Pt has JUDAH but does not use CPAP. He reportedly has used CPAP in the past but it has been quite some time and is supposed to be following up with Dr. Aguilar for sleep study evaluation. Significant Findings Laboratory Tests Test 06/02/17 06:25 Imaging Last Impressions Chest X-Ray 05/29/17 0000 Signed Impressions: Service Date/Time: Monday, May 29, 2017 12:09 - CONCLUSION: No acute disease. Frankie Enamorado MD FACR PE at Discharge General: NAD, AAOx3 Chest: improved clear through out Cardiac: Regular Abd: +BS, soft, obese, ND/NT Ext: No edema Hospital Course Asthma exacerbation with acute bronchitis - Pt is a 41 y/o AAM with asthma, allergies, JUDAH and morbid obesity. - He presented to the ED at [facility] [place] on 05/27/17 with complaints of worsening cough and SOB that began about 1 week ago with "cold symptoms" with runny nose, post- nasal drip and cough. He has been using Duonebs every 4 hours over the last week. Pts symptoms worsened and he to [facility] on 05/26/17 and was prescribed azithromycin as well as prednisone taper. He has been taking these without relief of his symptoms. Yesterday he had fevers of 101.2. Last night he felt that his symptoms acutely worsened with increased SOB and cough and this prompted him to come to the ED for further evaluation. - Pt was given Solu-Medrol and Duonebs in the ED. He was initially requiring 4L of supplemental O2. - CXR in the ED indicated NAD. His WBC count was 6.7 at admission. - Pt typically uses Breo ellipta, Ventolin inhaler 3-4 times daily and his Singulair for maintenance of his asthma. He also states that he has been getting allergy injections regularly. - change solumedrol to PO prednisone - decreased scheduled duonebs to q6h and Q2H PRN - Budesonide nebs BID - change Azithromycin to PO, coarse completed - Claritin - Sputum culture --> normal respiratory lito - Pt was weaned off supplemental O2 on 05/29 - Supportive care - DVT prophylaxis with SCDs JUDAH - Pt has JUDAH but does not use CPAP. He reportedly has used CPAP in the past but it has been quite some time and is supposed to be following up with Dr. Aguilar for sleep study evaluation. Steroid-induced hyperglycemia - blood sugar was normal on admission - elevation likely d/t steroids, but possibly underlying DM2 - HgA1C pending, patient to follow up with PCP for HA1c results and possible underlying DM - levemir 7 units BID, while patient was on IV solu medrol - SSI Pt Condition on Discharge: Stable Discharge Disposition: Discharge Home Discharge Instructions DIET: Follow Instructions for: Heart Healthy Diet, Weight Management Activities you can perform: Regular-No Restrictions Follow up Referrals: PCP Follow-up - [address] Galindo New Medications: Albuterol Neb (Albuterol Neb) 2.5 Mg/0.5 Ml Neb 2.5 MG NEB Q6HR NEB for Shortness of breath/ Wheezing, #60 BOX Note: The Albuterol Sulfate Inhalation Solution is concentrated and must be diluted. Read complete instructions carefully before using. Ipratropium Neb (Ipratropium Neb) 0.5 Mg/2.5 Ml Amp 0.5 MG NEB Q6HR NEB for Breathing Treatment, #60 NEBULE 0 Refills Nebulizer (Nebulizer) 1 Mis Mis EA .XX DIRECTED for Breathing Treatment, #1 0 Refills Nebulizer Kit/Tubing/Mout (Nebulizer Kit/Tubing/Mout) 1 Kit Kit KIT .XX DIRECTED for Breathing Treatment, #1 0 Refills Prednisone (Prednisone) 10 Mg Tab 10 MG PO DIRECTED for steroid taper, #21 TAB 0 Refills take 20 mg by mouth twice a day for 3 days, then take 20 mg by mouth once a day for 3 days, then take 10 mg by mouth once a day for 3 days Loratadine (Claritin) 10 Mg Tablet 10 MG PO DAILY for allergies for 10 Days, #10 EACH 0 Refills Continued Medications: Acetaminophen (Tylenol) 325 Mg Tab 500 MG PO PRN, #1 TAB 0 Refills Albuterol 18 GM Inh (Ventolin Hfa 18 GM Inh) 90 Mcg/Act Aer 2 PUFF INH Q4H PRN for SHORTNESS OF BREATH, #1 INHALER 0 Refills Azelastine Nasal [place] (Azelastine Nasal [place]) 0.1% [place] 1 SPRAY EACH NARE BID for Allergies, #1 BOTTLE 0 Refills Fluticasone-Vilanterol Inh (Breo Ellipta Inh) 200-25 Mcg/Act Inh 1 PUFF INH DAILY, #1 INHALER 0 Refills Use daily at the same time. Discontinued Medications: Azithromycin (Azithromycin) 250 Mg Tab 250 MG PO DAILY for Infection, TAB 0 Refills Prednisone (Prednisone) 20 Mg Tab 20 MG PO DAILY, TAB 0 Refills Additional Information Patient examined. Assessment and plan formulated with Ariella Chester PA-C. I agree with the above. Pt's lungs are much improved. Good air movement. No wheezing. Discharge medications reviewed with pt. Pt to f/u with Dr. Galindo in 1 week. Ariella Chester Jun 02, 2017 08:56 Leon Colon DO Jun 03, 2017 12:52
--- NOTE | 2017-06-02 08:56 | HHI.DCPOC ---
Discharge Care Plan Diagnosis: (1) Asthma exacerbation (2) Bronchitis (3) JUDAH (obstructive sleep apnea) (4) Steroid-induced hyperglycemia Goals to Promote Your Health * To prevent worsening of your condition and complications * To maintain your health at the optimal level Directions to Meet Your Goals Take your medications as prescribed Follow your dietary instruction Follow activity as directed Keep your appointments as scheduled Take your immunizations and boosters as scheduled If your symptoms worsen call your PCP, if no PCP go to Urgent Care Center or Emergency Room Smoking is Dangerous to Your Health. Avoid second hand smoke Call the 24-hour hour crisis hotline for domestic abuse at Ariella Chester Jun 02, 2017 08:56 Leon Colon DO Jun 02, 2017 22:06
[2017-06-02] MEDS: RESP: BUDESONIDE 0.5 MG/2 ML NEB NEB SCH ×2 (09:37→20:13)
[2017-06-02] MEDS ORDERED: NEBUKIT5 (11:03)
[2017-06-02] MEDS ORDERED: NEBULIZER1 MI1 (11:03)
[2017-06-02] MEDS ORDERED: IPRA0.02 NEB (11:06)
[2017-06-02] MEDS ORDERED: ALBU.5I NEB (11:06)
--- NOTE | 2017-06-02 11:08 | HHI.PR ---
Subjective Remarks Patient reports feeling, "a little tired." Feels that breathing is much better Objective Vitals Vital Signs Date Time Temp Pulse Resp B/P (MAP) Pulse Ox O2 Delivery O2 Flow Rate FiO2 06/02/17 08:00 97.8 82 18 146/74 (98) 93 06/02/17 04:00 97.5 81 16 146/60 (88) 96 06/02/17 00:00 97.5 83 16 134/78 (96) 92 06/01/17 20:00 98.1 86 16 169/67 (101) 97 06/01/17 16:00 97.8 101 18 154/86 (108) 94 06/01/17 13:08 98.4 84 18 155/82 (106) 94 Imaging Last Impressions Chest X-Ray 05/27/172102 Signed Impressions: Service Date/Time: Saturday, May 27, 2017 21:21 - CONCLUSION: No acute disease. Maicol Fang MD Objective Remarks General: NAD, AAOx3 Chest: improved clear through out Cardiac: Regular Abd: +BS, soft, obese, ND/NT Ext: No edema Procedures none A/P Problem List: (1) Asthma exacerbation ICD Codes: J45.901 - Unspecified asthma with (acute) exacerbation Status: Acute Plan: Asthma exacerbation with acute bronchitis - Pt is a 41 y/o AAM with asthma, allergies, JUDAH and morbid obesity. - He presented to the ED at [facility] on 05/27/17 with complaints of worsening cough and SOB that began about 1 week ago with "cold symptoms" with runny nose, post- nasal drip and cough. He has been using Duonebs every 4 hours over the last week. Pts symptoms worsened and he to [facility] on 05/26/17 and was prescribed azithromycin as well as prednisone taper. He has been taking these without relief of his symptoms. Yesterday he had fevers of 101.2. Last night he felt that his symptoms acutely worsened with increased SOB and cough and this prompted him to come to the ED for further evaluation. - Pt was given Solu-Medrol and Duonebs in the ED. He was initially requiring 4L of supplemental O2. - CXR in the ED indicated NAD. His WBC count was 6.7 at admission. - Pt typically uses Breo ellipta, Ventolin inhaler 3-4 times daily and his Singulair for maintenance of his asthma. He also states that he has been getting allergy injections regularly. - change solumedrol to PO prednisone - decreased scheduled duonebs to q6h and Q2H PRN - Budesonide nebs BID - change Azithromycin to PO - Claritin - Sputum culture --> normal respiratory lito - Pt was weaned off supplemental O2 on 05/29 - Supportive care - DVT prophylaxis with SCDs - if pt remains stable, will discharge to home 06/03/17 JUDAH - Pt has JUDAH but does not use CPAP. He reportedly has used CPAP in the past but it has been quite some time and is supposed to be following up with Dr. Aguilar for sleep study evaluation. (2) JUDAH (obstructive sleep apnea) ICD Codes: G47.33 - Obstructive sleep apnea (adult) (pediatric) Status: Chronic Plan: - see above (3) Steroid-induced hyperglycemia ICD Codes: R73.9 - Hyperglycemia, unspecified; T38.0X5A - Adverse effect of glucocorticoids and synthetic analogues, initial encounter Status: Acute Plan: - blood sugar was normal on admission - elevation likely d/t steroids, but possibly underlying DM2 - HgA1C pending - continue levemir 7 units BID - SSI Assessment and Plan Patient examined. Assessment and plan formulated with Ariella Chester PA-C. I agree with the above. Less SOB. Less wheezing. If pt remains stable, anticipate d/c to home 06/02/17 observe blood sugar readings. Await HgA1C Problem Qualifiers (1) Asthma exacerbation: Qualified Codes: J45.901 - Unspecified asthma with (acute) exacerbation Ariella Chester Jun 02, 2017 11:08 Leon Colon DO Jun 02, 2017 12:16
[2017-06-02 16:42] LABS: HEMOGLOBIN A1C 5.9 % (4.3-6.0)
[2017-06-03 00:15] VITALS: BP 130/69; PULSE 98; RESP 18; TEMP 98; O2SAT 97
[2017-06-03 03:15] VITALS: BP 130/68; PULSE 87; RESP 19; TEMP 99; O2SAT 95
[2017-06-03] MEDS: RESP: ALBUTEROL 2.5 MG/IPRATROPIUM 0.5 MG NEB (SCH) NEB ×2 (04:07→09:55)
[2017-06-03] MEDS: LORATADINE 10 MG TAB PO SCH (07:54)
[2017-06-03] MEDS: AZITHROMYCIN 250 MG TAB PO SCH (07:54)
[2017-06-03] MEDS: INSULIN DETEMIR 100 UNITS/ML VIAL SQ SCH (07:54)
[2017-06-03] MEDS: predniSONE 20 MG TAB PO SCH (07:54)
[2017-06-03] MEDS: guaiFENesin E.R. 600 MG TAB PO SCH (07:54)
[2017-06-03] MEDS: INSULIN ASPART SUPPLEMENTAL SCALE SQ SCH (07:55)
[2017-06-03] MEDS: FLUTICASONE 200 MCG/VILANTEROL 25 MCG INHALER INH SCH (07:55)
[2017-06-03 08:28] VITALS: BP 113/58; PULSE 78; RESP 20; TEMP 97.9; O2SAT 98
[2017-06-03] MEDS: RESP: BUDESONIDE 0.5 MG/2 ML NEB NEB SCH (09:55)
[2017-06-03 09:58] VITALS: O2SAT 97
[2017-06-03 12:34] VITALS: BP 132/64; PULSE 78; RESP 20; TEMP 97.9; O2SAT 94
== END 2017-06-03 14:40 | disposition home or self-care (01) | DRG 202 ==
LOC: NEPC 19:39 → NEDA 05-28 02:36 → NEPFCDU 05-28 03:19 → OBSVTOIN 05-29 11:43 → N05B 05-30 15:53
PROVIDERS: ADMIT Hospitalist; ATTEND Hospitalist
DX: J45.901 Unspecified asthma with (acute) exacerbation (principal); Z68.43 Body mass index [BMI] 50.0-59.9, adult; J44.0 Chronic obstructive pulmonary disease with (acute) lower respiratory infection; J20.9 Acute bronchitis, unspecified; G47.33 Obstructive sleep apnea (adult) (pediatric); E66.01 Morbid (severe) obesity due to excess calories; T38.0X5A Adverse effect of glucocorticoids and synthetic analogues, initial encounter; R73.9 Hyperglycemia, unspecified
CPT/HCPCS: 71046; 80053; 82948; 83036; 83880; 84484; 85025; 85610; 85730; 87070; 87205; 93005; 94640; 94664; 96365; 96366; 96375; 96376; 99285; G0378; J0456; J1815; J2930; J3475; J7050; J7512; J7626